=== PATIENT | female | born 1995 | race Caucasian/White ===

== ENCOUNTER 2019-06-28 06:37 | Emergency (ER) | payer BC, MEDICAID ==
[~2019-06-28] VITALS: Ht 160 cm; Wt 77.1 kg
[2019-06-28 06:53] VITALS: BP 110/83
--- NOTE | 2019-06-28 06:55 | NUR ---
TO BED # 03 AMBULATORY
--- NOTE | 2019-06-28 07:20 | NUR ---
Dr. Zhou is evaluating the patient at bedside.
--- NOTE | 2019-06-28 07:23 | NUR ---
24 Y/O F C/O SORE THROAT X1 DAY. PT STATES SHE HAS HAD A FEVER AT HOME WELL AND BODY ACHES. LUNG SOUNDS CLEAR THROUGHOUT. PT HAS RUNNY NOSE, AND COUGH. EDA
--- NOTE | 2019-06-28 07:44 | NUR ---
PT RESTING COMFORTABLY, EYES CLOSED.
[2019-06-28 08:11] VITALS: BP 110/83
--- NOTE | 2019-06-28 08:12 | NUR ---
Patient discharged with v/s stable. Written and verbal after care instructions given and explained. Patient alert, oriented and verbalized understanding of instructions. Ambulatory with steady gait. All questions addressed prior to discharge. ID band removed. Patient advised to follow up with PMD. Rx of MOTRIN, PREDNISONE, TAMIFLU given. Patient educated on indication of medication including possible reaction and side effects. Opportunity to ask questions provided and answered.
== END 2019-06-28 08:12 | disposition home or self-care (01) ==
LOC: MED 06:37
DX: J02.9 Acute pharyngitis, unspecified (principal); M79.10 Myalgia, unspecified site; R09.81 Nasal congestion; Z90.49 Acquired absence of other specified parts of digestive tract; Z98.890 Other specified postprocedural states
CPT/HCPCS: 99283